=== PATIENT | female | born 1980 | race Caucasian/White ===

== ENCOUNTER 2019-10-31 10:44 | Observation (INO) ==
[~2019-10-31 10:44] MED LIST: CEFOXITIN SODIUM 2 GM in DEXTROSE 5 % IN WATER 100 ML IV PRN
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
[2019-10-31] MEDS ORDERED: ONDANSETRON HCL/PF 2 MG/ML VIAL IV ONE (10:57)
[2019-10-31] MEDS ORDERED: KETOROLAC TROMETHAMINE 30 MG/ML VIAL IV ONE (10:58)
[2019-10-31 11:16] LABS: Hemoglobin 12.2 gm/dL (12.5-16.0); Mean Cell Volume 87.6 fl (78-100); Mean Corpuscular Hemoglobin 28.1 pg (27-31); Mean Corpuscular Hgb Conc 32.1 g/dl (32-36); Mean Platelet Volume 9.5 fl (8-12.5); Neutrophil # 7.4 K/mm3 (1.3-6.0); Neutrophil % 64.7 % (42-75.0); Platelet Count 378 K/mm3 (150-450); Red Blood Count 4.34 M/mm3 (4.2-5.4); Red Cell Distribution Width 16.2 % (11.5-14.0); White Blood Count 11.4 K/mm3 (4.0-10.5)
[2019-10-31 11:35] LABS: BUN/Creatinine Ratio 8.3 (9.0-21.6)
[2019-10-31 11:36] LABS: Albumin * 3.7 gm/dl (3.4-5.0); Anion Gap 15.8 mmol/L (6.8-13.8); Bilirubin, Total 0.2 mg/dL (0.0-1.1); Ca. Corrected For Albumin 8.6 mg/dL (8.4-10.2); Calcium * 8.7 mg/dL (7.9-10.9); Carbon Dioxide 25.7 mmol/L (24-32.6); Potassium 3.5 mmol/L (3.4-4.6); Total Protein 7.7 gm/dL (6.2-8.2)
[2019-10-31 12:34] LABS: Urine Bilirubin 1 mg/dl (NEGATIVE); Urine Blood 25 /ul (NEGATIVE); Urine Ketone 5 mg/dL (NEGATIVE); Urine Nitrite Negative (NEGATIVE); Urine Protein 15 mg/dL (NEGATIVE); Urine Specific Gravity 1.025 SP.GR. (1.005-1.010); Urine Urobilinogen Normal (NORMAL)
[2019-10-31 12:48] LABS: Urine Appearance Cloudy (CLEAR); Urine Bacteria 1+; Urine Color Dark Yellow; Urine RBC None Seen /hpf (0-5); Urine WBC 0-5 /hpf (0-5)
[2019-10-31] MEDS ORDERED: MORPHINE SULFATE 4 MG/ML SYRG IV ONE (14:34)
--- NOTE | 2019-10-31 16:14 | ANES ---
Anesthesia Pre Procedure Eval Vitals/Labs: Last Vital Signs Temp 36.4 C 10/31/19 12:59 Pulse 60 10/31/19 14:49 Resp 15 10/31/19 14:49 BP 140/74 H 10/31/19 14:49 Pulse Ox 95 10/31/19 14:49 HOME MEDICATIONS clonazepam 1 mg tablet 0.5 mg PO BID tab 05/25/18 [Last Taken Unknown] aripiprazole 15 mg tablet 15 mg PO DAILY 05/26/18 [Last Taken Unknown] levomefolate 15 mg-algal oil 90.314 mg capsule 1 cap PO DAILY 05/26/18 [Last Taken Unknown] trazodone 100 mg tablet 100 mg PO HS 05/26/18 [Last Taken Unknown] albuterol sulfate 2.5 mg IH QID #180 ml 01/10/19 [Last Taken Unknown] metoprolol succinate 200 mg tablet,extended release 24 hr 200 mg PO BID #60 tab NS 06/10/19 [Last Taken Unknown] metformin 500 mg tablet,extended release 24 hr 1,000 mg PO BID #360 tab 06/28/19 [Last Taken Unknown] umeclidinium 62.5 mcg-vilanterol 25 mcg/actuation powdr for inhalation 1 inh IH DAILY #60 ea 07/27/19 [Last Taken Unknown] lamotrigine 150 mg tablet 300 mg PO DAILY tab 08/03/19 [Last Taken Unknown] cetirizine 10 mg tablet 10 mg PO DAILY #90 tab 08/08/19 [Last Taken Unknown] fluticasone propionate 50 mcg/actuation nasal spray,suspension 1 spray XENA DAILY PRN #54.6 g 09/01/19 [Last Taken Unknown] ondansetron HCl 4 mg tablet 4 mg PO Q6H PRN #20 tab 09/06/19 [Last Taken Unknown] albuterol sulfate 90 mcg/actuation aerosol inhaler See Rx Instructions .ROUTE .COMPLEX #18 g 09/20/19 [Last Taken Unknown] omeprazole 40 mg capsule,delayed release See Rx Instructions .ROUTE .COMPLEX #90 cap 10/11/19 [Last Taken Unknown] hydrochlorothiazide 25 mg tablet See Rx Instructions .ROUTE .COMPLEX #90 tab 10/12/19 [Last Taken Unknown] liraglutide 0.6 mg/0.1 mL (18 mg/3 mL) subcutaneous pen injector 1.8 mg SUBCUT DAILY #9 ml 10/18/19 [Last Taken Unknown] roflumilast 500 mcg tablet 500 mcg PO DAILY #90 tab 10/24/19 [Last Taken Unknown] Allergies/Adverse Reactions: Allergies Allergy/AdvReac Type Severity Reaction Status Date / Time No Known Allergies Allergy Verified 10/18/19 10:52 - Planned Procedure Planned Procedure: Gall bladder pain, chest pain, back pain Medication List Reviewed:: Yes Allergies Verified: Yes Medical History (Last Reviewed 10/31/19 @ 16:10 by Yrn Willis CRNA) Major depressive disorder (Chronic) Onset Date: Unknown sHe has been undergoing regular follow-up at the [facility] psychiatry clinic GERD (gastroesophageal reflux disease) (Chronic) Onset Date: Unknown Bipolar 1 disorder (Acute) Onset Date: Unknown Asthma (Acute) Onset Date: ~08/05/13 with flare Will change Incruze to Anoro Anxiety (Acute) Onset Date: Unknown Cervical polyp Onset Date: ~08/2016 benign Depression Onset Date: Unknown Diabetes mellitus Onset Date: ~05/2017 Fibromyalgia Onset Date: Unknown Gastric ulcer Onset Date: Unknown Back pain Borderline personality disorder Leukocytosis Onset Date: Unknown MTHFR gene mutation Obesity Onset Date: Unknown Persistent depressive disorder Primary insomnia Sleep apnea Onset Date: Unknown Suicidal ideations Onset Date: ~03/2017 and 10/19/2017 Surgical History (Last Reviewed 10/31/19 @ 16:10 by Yrn Willis CRNA) H/O cervical polypectomy Onset Date: 09/04/16 benign History of colposcopy Onset Date: ~05/2013 benign proliferative phase endometrial fragments, endocervical epithelium not included in specimen 08/2016 negative 09/09/2017 LIZBET I History of loop electrical excision procedure (LEEP) Onset Date: ~02/2006 LEETZ/LEEP Hx of cardiac catheterization Onset Date: ~07/2019 [place] teeth extracted Onset Date: ~2011 Family History (Last Reviewed 10/31/19 @ 16:10 by Yrn Willis CRNA) Mother Heart disease Diabetes Myocardial infarction Father , age 64-colon ca Cancer colon ca-dx age 52 Heart disease Myocardial infarction Grandfather , maternal CHF (congestive heart failure) Diabetes Grandfather Cancer paternal-lung ca Grandmother Cancer paternal-breast ca Heart disease paternal Diabetes maternal CHF (congestive heart failure) maternal COPD (chronic obstructive pulmonary disease) maternal Uncle Diabetes paternal Brother Diabetes - Family Anesthesia History Family History:: no untoward family reactions to anesthesia, no familial bleeding tendencies, no family history of clotting disorders, no family history of premature - Airway/Neck/Teeth Neck Exam: full range of motion Mallampatti Score: 2 Thyromental (T-M) distance: > 6 cm Mandibulo Hyoid distance: > 3 cm - Respiratory Respiratory History: asthma, sleep apnea, CPAP/BiPAP home use Respiratory Physical: lungs clear Smoking Status: Never smoker - Less than 0.5ppd Discussed smoking cessation including day of surgery: Yes - last ciggarrette 0800 Sleep Apnea currently treated: Yes Sleep Apnea by current assessment: Yes - Cardiovascular Cardiac History: arrhythmia - tachycardia treated with metoprolol Tolerate Activity: Fair Heart Sounds: S1 & S2, Regular - Gastrointestinal NPO since: 0800 tea - Anesthesia Assessment and Plan ASA Class: PS, III Anesthesia Type Plan: General ET
[2019-10-31] MEDS ORDERED: ONDANSETRON HCL/PF 2 MG/ML VIAL ONE (16:20)
[2019-10-31] MEDS ORDERED: fentaNYL CITRATE/PF 50 MCG/ML AMPUL ONE (16:20)
[2019-10-31] MEDS ORDERED: KETOROLAC TROMETHAMINE 30 MG/ML VIAL ONE (16:21)
[2019-10-31] MEDS ORDERED: DEXAMETHASONE SODIUM PHOSPHATE 10 MG/ML VIAL ONE (16:21)
[2019-10-31] MEDS ORDERED: GLYCOPYRROLATE 0.2 MG/ML VIAL ONE (16:21)
[2019-10-31] MEDS ORDERED: NEOSTIGMINE METHYLSULFATE 1 MG/ML VIAL ONE (16:21)
[2019-10-31] MEDS ORDERED: ROCURONIUM BROMIDE 10 MG/ML VIAL ONE (16:21)
[2019-10-31] MEDS ORDERED: SUCCINYLCHOLINE IN 0.9%NACL/PF 200 MG/10 ML SYRINGE IV ONE (16:21)
[2019-10-31] MEDS ORDERED: PROPOFOL VIAL IV ONE (16:21)
[2019-10-31] MEDS ORDERED: BUPIVACAINE HCL/EPINEPHRINE 50 ML VIAL IJ ONE ×2 (17:23→18:15)
--- NOTE | 2019-10-31 17:36 | PN ---
Dictated Progress Note - Date and Time Seen: Date: 10/31/19 Time: 17:31 - Progress Note Narrative: Vital Signs - Last Taken Temp 36.2 C 10/31/19 17:25 Pulse 69 10/31/19 17:25 Resp 16 10/31/19 17:25 BP 120/73 10/31/19 17:25 Pulse Ox 95 10/31/19 17:25 Abnormal/Pending Laboratory Last 24 HRS 10/31/19 10/31/19 10/31/19 12: 11:11 11:11 WBC 11.4 H Hgb 12.2 L RDW 16.2 H Immature Gran % (Auto) 0.50 H Immature Gran # (Auto) 0.06 H Neutrophils # 7.4 H Anion Gap 15.8 H BUN/Creatinine Ratio 8.3 L Random Glucose 140 H Urine Protein 15 H Urine Blood 25 H Urine Bilirubin 1 H Ur Leukocyte Esterase 25 H Urine Bacteria 1+ H Since her office visit she developed RUQ pain again. WBC is elevated and HIDA scan shows cystic duct obstruction. There have been no other changes to the H&P previously performed Alert and oriented Tender RUQ Heart: regular rhythm, no murmur, no skipped or extra beats Lungs: clear Neuro: intact, non-focal Impression: Acute cholecystitis with cholelithiasis Recommend: Laparoscopic or open cholecystectomy---has been explained, questions answered and informed consent obtained.
[2019-10-31] MEDS: RINGER'S SOLUTION,LACTATED 1,000 ML IV PRN ×2 (17:50→19:35)
[2019-10-31] MEDS ORDERED: MUPIROCIN 22 APPL TUBE TP ONE (19:32)
[2019-10-31] MEDS ORDERED: ONDANSETRON HCL/PF 2 MG/ML VIAL IV PRN (19:56)
--- NOTE | 2019-10-31 19:56 | ANES ---
Post Anesthesia Discharge - Transfer of Care Transfer of Care handoff given to nurse: Yes - Discharge from PACU Discharge from PACU when meets criteria: Yes - Comfortable in PACU.
--- NOTE | 2019-10-31 20:45 | OR ---
Operative Report - Dictated Report Narrative: DATE OF OPERATION: 10/31/2019 PREOPERATIVE DIAGNOSIS: Acute cholecystitis and cholelithiasis POSTOPERATIVE DIAGNOSIS: Same (pathology pending) OPERATION: Laparoscopic cholecystectomy SURGEON: DWAYNE Wisdom MD ANESTHESIA: General endotracheal Yrn Willis CRNA INDICATIONS FOR PROCEDURE: The patient is a 39-year-old female who was just seen in the office on 10/18/2019 after several attacks of right upper quadrant pain with ultrasound findings of cholelithiasis and probable chronic cholecystitis. Surgery was discussed, however she preferred to defer surgery until after an upcoming trip. Today however she developed acute onset of right upper quadrant pain and presented to the emergency room where ultrasound showed cholelithiasis with a nonmobile gallstone and subsequent HIDA scan showed nonvisualization of the gallbladder compatible with acute cholecystitis FINDINGS: Acute cholecystitis with cholelithiasis. Findings compatible with obstructive sleep apnea NARRATIVE OF PROCEDURE: The patient was identified preoperatively. Prior to the administration of anesthetic a multidisciplinary timeout observed. With the patient in the supine position, SCDs were placed, 2 g of intravenous Mefoxin administered, and general endotracheal anesthetic administered. The patient's abdomen was prepped with Betadine solution and a generous operating field outlined with 4 sterile towels. The remainder the patient was covered with a sterile disposable drape. An infraumbilical skin incision was made. Dissection was carried along the umbilical stalk until the fascia of the linea alba was encountered. This was incised. The peritoneum was then elevated and incised to allow entry into the abdomen under direct vision. A Hussan cannula was placed, and the abdomen insufflated with CO2. The laparoscopic camera was introduced and the abdomen briefly explored. Those portions of the liver, omentum, small bowel and colon visualized appeared normal. Only the apex of the gallbladder could be visualized. Next under direct vision 3 additional working ports were inserted through separate skin incisions, one in the subxiphoid, one in the right upper quadrant, and one in the right flank. The gallbladder was decompressed with a needle. The puncture site was grasped. The apex of the gallbladder was retracted cephalad. There were omental adhesions to the body and neck of the gallbladder which could be lysed under direct vision down to the expected location of the cystic duct. The cystic duct was dissected free for a sufficient distance for confident identification. It was doubly clipped and divided. The cystic artery was identified doubly clipped and divided. The gallbladder was then removed from the liver bed by retrograde electrocautery dissection. Prior to severing the last attachments of the gallbladder the liver bed was inspected and found to be hemostatic with no evidence of bile leak. The previously placed clips were seen to be intact. The right upper quadrant was suctioned clean. The last attachments of the gallbladder were divided. It was placed in an Endobag and parked in the right upper quadrant. The smaller working ports were withdrawn under direct vision to ensure entry site hemostasis. The gallbladder was removed in conjunction with the Hussan cannula. The pneumoperitoneum was allowed to escape, and after receiving a correct sponge needle and instrument count attention was turned to closing the abdomen. The fascia and peritoneum at the umbilicus were approximated with interrupted sutures of #1 Vicryl. Subcutaneous space at the umbilicus was approximated with 3-0 chromic. Skin incisions were approximated with interrupted vertical mattress sutures of 4-0 nylon. The operative sites were washed and dried. Dressings of Bactroban ointment and large Band-Aids were applied to the small port sites. The umbilical incision was dressed with Bactroban ointment, 2 x 2, large Band-Aid and Medipore tape. The operative procedure was terminated at this point. The patient tolerated the anesthetic and procedure well without complication. There was no measurable blood loss. The gallbladder was submitted to pathology. 0.5% Marcaine with epinephrine was used for local anesthetic infiltration. The patient was transferred to the recovery room awake, extubated, and in stable condition. Plan is to place the patient in observation bed overnight with CPAP. Reviewed and electronically signed
[2019-10-31] MEDS: oxyCODONE HCL/ACETAMINOPHEN 1 TAB TABLET PO PRN (21:14)
[2019-11-01] MEDS: oxyCODONE HCL/ACETAMINOPHEN 1 TAB TABLET PO PRN ×3 (01:23→10:01)
--- NOTE | 2019-11-01 06:56 | ANES ---
Post Anesthesia Assessment - Vital Signs Vitals: Last Vital Signs Temp 36.5 C 11/01/19 06:36 Pulse 61 11/01/19 06:36 Resp 18 11/01/19 06:36 BP 111/48 11/01/19 06:36 Pulse Ox 95 11/01/19 06:36 Airway Patency: Normal - Mental Status Level Of Consciousness: Awake, Alert, Appropriate - Pain Level Pain Score: 4 - N/V Assessment Nausea/Vomiting Presence: None Dehydration:: No
--- NOTE | 2019-11-01 12:33 | DS ---
(1) Acute cholecystitis Problem: Acute Date of Discharge:: 11/01/19 Description of Stay: She was initially seen in the office on 10/18/2019 to discuss surgery for cholelithiasis and cholecystitis after 3 attacks of right upper quadrant pain which resolved. She elected to defer surgery until after the first of the year, however on 10/31/2019 she developed another attack of severe right upper quadrant pain and presented to the emergency room. HIDA scan revealed cystic duct obstruction compatible with acute cholecystitis, so she was taken to the operating room and underwent an uneventful laparoscopic cholecystectomy for acute cholecystitis with cholelithiasis. She was placed in observation status for pain control and CPAP due to severe ROJELIO. Her vital signs remained normal, her SaO2 remained acceptable on CPAP, and her presenting pain was replaced with incisional discomfort which was controlled with p.o. Percocet. She received IV Mefoxin preoperatively and had SCDs used for VTE prophylaxis. Her dressings remained dry. She was able to tolerate advanced diet, was out of bed without assistance and desired discharge. She was discharged home with instructions not to lift and not to drive. She is to keep her current dressings dry and intact for 48 hours but then may shower an d change the dressings daily or as needed. She may resume her home medications and continue to advance diet as tolerated. She is given a prescription for Percocet 5/325 mg #30. She has phone numbers to call for questions or concerns. A follow-up office appointment will be made for 1 week Procedures Performed: see notes below - Laparoscopic cholecystectomy on 10/31/2017 Results and Findings: Pending Mircobiology Results 10/31/19 12:15 Urine,Voided Urine Culture - Preliminary No Growth Lab Pending Results 10/31/19 11:11: WBC 11.4 H, RBC 4.34, Hgb 12.2 L, Hct 38.0, MCV 87.6, MCH 28.1, MCHC 32.1, RDW 16.2 H, Plt Count 378, MPV 9.5, Immature Gran % (Auto) 0.50 H, Immature Gran # (Auto) 0.06 H, Neutrophils % 64.7, Lymphocytes % 26.3, Monocytes % 5.7, Eosinophils % 2.2, Basophils % 0.6, Nucleated RBC % 0.0, Neutrophils # 7.4 H, Lymphocytes # 2.99, Monocytes # 0.7, Eosinophils # 0.3, Absolute Basophils 0.1 10/31/19 11:11: Sodium 138, Plasma Sodium 139, Potassium 3.5, Chloride 100, Carbon Dioxide 25.7, Anion Gap 15.8 H, BUN 8, Creatinine 0.96, Est GFR (Non-Af Amer) 69, BUN/Creatinine Ratio 8.3 L, Random Glucose 140 H, Calcium 8.7, Calcium Adj for Albumin 8.6, Total Bilirubin 0.2, AST 16, ALT 39, Alkaline Phosphatase 69, Total Protein 7.7, Albumin 3.7, Amylase 36, Lipase 144 10/31/19 11:23: C-Reactive Prot, Quant 0.7 10/31/19 12:19: Urine Color Dark yellow, Urine Appearance Cloudy, Urine pH 6.0, Ur Specific [place] 1.025, Urine Protein 15 H, Urine Glucose (UA) Negative, Urine Ketones 5, Urine Blood 25 H, Urine Nitrate Negative, Urine Bilirubin 1 H, Urine Ictotest Negative, Prot Sulfosalicylic Acd Negative, Urine Urobilinogen Normal, Ur Leukocyte Esterase 25 H, Urine RBC None seen, Urine WBC 0-5, Ur Epithelial Cells 0-5, Urine Bacteria 1+ H, Urine Culture Comments Culture to follow 10/31/19 20:03: Pathology Specimen Sent to path Discharge Location: Home Disposition: Home self-care Condition: Good Discharge Activity: Activity as tolerated, No Lifting Discharge Diet: Consistent carbs Referrals: Avery Baltazar MD [Primary Care Provider] - Problem Oriented Discharge Instructions to Patient/Family: Laparoscopic Cholecystectomy, Care After Additional Patient Instructions (free text): She is to follow-up in the office in 1 week [phone] Prescriptions (Any new or edited meds): oxyCODONE HCL/ACETAMINOPHEN [Percocet 5 MG/325 MG] 1 tab PO Q4H PRN #30 tab PRN Reason: Moderate Pain (Pain Scale 4-6) Prescription Printed Complete Home Medications List: Complete Home Medication List: clonazepam 1 mg tablet 0.5 mg PO BID tab 05/25/18 aripiprazole 15 mg tablet 15 mg PO DAILY 05/26/18 levomefolate 15 mg-algal oil 90.314 mg capsule 1 cap PO DAILY 05/26/18 trazodone 100 mg tablet 100 mg PO HS 05/26/18 albuterol sulfate 2.5 mg IH QID #180 ml 01/10/19 metoprolol succinate 200 mg tablet,extended release 24 hr 200 mg PO BID #60 tab NS 06/10/19 metformin 500 mg tablet,extended release 24 hr 1,000 mg PO BID #360 tab 06/28/19 umeclidinium 62.5 mcg-vilanterol 25 mcg/actuation powdr for inhalation 1 inh IH DAILY #60 ea 07/27/19 lamotrigine 150 mg tablet 300 mg PO DAILY tab 08/03/19 cetirizine 10 mg tablet 10 mg PO DAILY #90 tab 08/08/19 fluticasone propionate 50 mcg/actuation nasal spray,suspension 1 spray XENA DAILY PRN #54.6 g 09/01/19 ondansetron HCl 4 mg tablet 4 mg PO Q6H PRN #20 tab 09/06/19 albuterol sulfate 90 mcg/actuation aerosol inhaler See Rx Instructions .ROUTE .COMPLEX #18 g 09/20/19 omeprazole 40 mg capsule,delayed release See Rx Instructions .ROUTE .COMPLEX #90 cap 10/11/19 hydrochlorothiazide 25 mg tablet See Rx Instructions .ROUTE .COMPLEX #90 tab 10/12/19 liraglutide 0.6 mg/0.1 mL (18 mg/3 mL) subcutaneous pen injector 1.8 mg SUBCUT DAILY #9 ml 10/18/19 roflumilast 500 mcg tablet 500 mcg PO DAILY #90 tab 10/24/19 Sertraline HCl [Zoloft] mg PO DAILY 10/31/19 oxyCODONE HCL/ACETAMINOPHEN [Percocet 5 MG/325 MG] 1 tab PO Q4H PRN #30 tab 11/01/19
[2019-11-01 13:10] VITALS: BP 114/56
== END 2019-11-01 13:30 | disposition home or self-care (01) ==
LOC: ER 10:44 → AMB 15:26 → MS 15:26 → AMB 17:45
PROVIDERS: ADMIT Surgery; ATTEND Surgery
DX: F17.210 Nicotine dependence, cigarettes, uncomplicated; G47.33 Obstructive sleep apnea (adult) (pediatric); E11.9 Type 2 diabetes mellitus without complications; K80.12 Calculus of gallbladder with acute and chronic cholecystitis without obstruction
CPT/HCPCS: 36415; 76705; 78226; 80053; 81001; 82150; 83690; 85025; 86140; 87086; 88304; 94660; 96374; 96375; 99285; A9537; G0378; J0330; J2405